=== PATIENT | female | born 1990 | race Caucasian/White ===

== ENCOUNTER → 2023-05-13 08:43 | Outpatient (REF) | payer OTHER, SELFPAY | LOC: RCS 08:43 | PROVIDERS: ATTENDING PHYSICIAN Internal Medicine | DX: R00.2 Palpitations (principal) | CPT/HCPCS: 93225; 93226 ==

== ENCOUNTER → 2023-10-06 13:43 | Outpatient (REF) | payer OTHER, SELFPAY | LOC: PAVMRI 13:43 | PROVIDERS: ATTENDING PHYSICIAN Internal Medicine | DX: H57.04 Mydriasis (principal) | CPT/HCPCS: 70549; 70553; A9585 ==

== ENCOUNTER → 2023-10-09 09:43 | Outpatient (REF) | payer OTHER, SELFPAY | LOC: PAVMRI 09:43 | PROVIDERS: ATTENDING PHYSICIAN Internal Medicine | DX: H57.04 Mydriasis (principal) | CPT/HCPCS: 70546; A9585 ==

== ENCOUNTER → 2024-02-06 17:08 | Outpatient (REF) | payer OTHER, SELFPAY | LOC: RAD 17:08 | PROVIDERS: ATTENDING PHYSICIAN Internal Medicine | DX: E04.1 Nontoxic single thyroid nodule (principal) | CPT/HCPCS: 76536 ==

== ENCOUNTER → 2024-09-16 12:53 | Outpatient (REF) | payer OTHER, SELFPAY | LOC: RAD 12:53 | PROVIDERS: ATTENDING PHYSICIAN Internal Medicine Rheumatology; FAMILY PHYSICIAN Internal Medicine | DX: L40.50 Arthropathic psoriasis, unspecified (principal); M53.3 Sacrococcygeal disorders, not elsewhere classified | CPT/HCPCS: 72200; 73523 ==

== ENCOUNTER → 2025-02-11 15:42 | Outpatient (REF) | payer OTHER, SELFPAY | LOC: RAD 15:42 | PROVIDERS: ATTENDING PHYSICIAN Obstetrics & Gynecology; FAMILY PHYSICIAN Hospitalist | DX: N93.9 Abnormal uterine and vaginal bleeding, unspecified (principal) | CPT/HCPCS: 76830; 76856 ==

== ENCOUNTER → 2025-03-06 16:35 | Outpatient (REF) | payer OTHER, SELFPAY | LOC: RAD 16:35 | PROVIDERS: ATTENDING PHYSICIAN Nurse Practitioner | DX: J20.9 Acute bronchitis, unspecified (principal); R07.89 Other chest pain | CPT/HCPCS: 71101 ==